=== PATIENT | male | born 1955 | race African-American/Black ===

== ENCOUNTER 2017-11-04 04:50 | Emergency (ER) | payer MEDICARE ==
[~2017-11-04] VITALS: Ht 185.4 cm; Wt 85.7 kg
[2017-11-04] MEDS ORDERED: ACETAMINOPHEN 325 MG TAB PO ONE (05:00)
[2017-11-04 05:20] LABS: BASOPHILS % 0.1 % (0.0-1.0); EOSINOPHILS % 0.3 % (0.0-6.0); HEMATOCRIT 39.6 % (38.2-49.6); HEMOGLOBIN 13.2 g/dL (14.0-18.0); LYMPHOCYTES # (AUTO) 0.9 (1.0-3.2); MEAN CORPUSCULAR HEMOGLOBIN 28.9 pg (28-32); MEAN CORPUSCULAR HGB CONC 33.3 g/dL (31-35); MEAN CORPUSCULAR VOLUME 86.7 fL (81-99); MONOCYTES # (AUTO) 0.8 (0.2-0.8); NEUTROPHILS # (AUTO) 5.1 (2.1-6.9); NEUTROPHILS % 75.5 % (38.7-80.0); PLATELET COUNT 232 x10e3/uL (140-360); RED BLOOD COUNT 4.57 x10e6/uL (4.3-5.7); RED CELL DISTRIBUTION WIDTH 13.4 % (11.7-14.4)
[2017-11-04] MEDS ORDERED: HUMULIN R100 UNIT/2 (05:28)
[2017-11-04] MEDS ORDERED: LASIX40 MG PO (05:28)
[2017-11-04] MEDS ORDERED: COMBIVENT RESPIM4 GM IH (05:28)
[2017-11-04] MEDS ORDERED: GABAPENTIN400 MG PO (05:28)
[2017-11-04] MEDS ORDERED: ISOSORBIDE MONO30 MG PO (05:28)
[2017-11-04] MEDS ORDERED: NOVOLIN N100 UNIT/1 SC ×2 (05:28)
[2017-11-04] MEDS ORDERED: CARVEDILOL12.5 MG PO (05:28)
[2017-11-04] MEDS ORDERED: ULTRAM50 MG PO (05:28)
[2017-11-04] MEDS ORDERED: ATORVASTATIN CA20 MG PO (05:28)
[2017-11-04] MEDS ORDERED: LOSARTAN POTAS100 MG PO (05:28)
[2017-11-04] MEDS ORDERED: ASPIR 8181 MG PO (05:28)
[2017-11-04 05:32] LABS: ALBUMIN 3.2 g/dL (3.5-5.0); ALBUMIN/GLOBULIN RATIO 0.6 (0.8-2.0); ANION GAP 12.6 mmol/L (8-16); CALCIUM 9.4 mg/dL (8.4-10.2); CREATININE, SERUM 1.61 mg/dL (0.72-1.25); POTASSIUM 4.6 mmol/L (3.5-5.1)
[2017-11-04 05:38] LABS: CREATINE KINASE MB 0.4 ng/mL (0.00-5.00); TROPONIN I 0.026 ng/mL (0-0.300)
--- NOTE | 2017-11-04 06:29 | Diagnostic Imaging Report ---
EXAM: CHEST SINGLE (PORTABLE), AP 1 view DATE: 11/04/2017 4:57 AM Time stamp on exam: 0526 hours INDICATION: Cough, fever COMPARISON: None FINDINGS: LINES/TUBES: None LUNGS: No consolidations or edema. PLEURA: No effusions or pneumothorax. HEART AND MEDIASTINUM: Normal size and contour. BONES AND SOFT TISSUES: No acute findings. IMPRESSION: No acute thoracic abnormality. Signed by: Dr. Raquel Hartley M.D. on 11/04/2017 6:25 AM
[2017-11-04] MEDS ORDERED: IBUPROFEN 600 MG TAB PO STA (06:31)
[2017-11-04 06:48] VITALS: BP 161/88
== END 2017-11-04 06:55 | disposition home or self-care (01) ==
LOC: ER 04:50
DX: J20.9 Acute bronchitis, unspecified (principal); J11.1 Influenza due to unidentified influenza virus with other respiratory manifestations
CPT/HCPCS: 36415; 71010; 80053; 82550; 82553; 83605; 84484; 85025; 87400; 93005; 99284

== ENCOUNTER 2018-04-08 18:46 | Emergency (ER) | payer MEDICARE ==
[~2018-04-08] VITALS: Ht 185.4 cm; Wt 95.3 kg
[~2018-04-08 18:46] MED LIST: ASPIR 8181 MG PO; ATORVASTATIN CA20 MG PO; CARVEDILOL12.5 MG PO; COMBIVENT RESPIM4 GM IH; GABAPENTIN400 MG PO; HUMULIN R100 UNIT/2; ISOSORBIDE MONO30 MG PO; LASIX40 MG PO; LOSARTAN POTAS100 MG PO; NOVOLIN N100 UNIT/1 SC; ULTRAM50 MG PO
[2018-04-08] MEDS ORDERED: HYDROMORPHONE 1MG/1ML INJ IV STA ×2 (22:19→23:30)
[2018-04-08] MEDS ORDERED: ONDANSETRON HCL INJ 2 MG/ML VIAL IV STA (22:19)
[2018-04-08 22:37] LABS: BASOPHILS % 0.3 % (0.0-1.0); EOSINOPHILS # (AUTO) 0.3 (0.0-0.4); EOSINOPHILS % 5.2 % (0.0-6.0); HEMATOCRIT 36.3 % (38.2-49.6); LYMPHOCYTES # (AUTO) 2.3 (1.0-3.2); LYMPHOCYTES % 35.9 % (18.0-39.1); MEAN CORPUSCULAR HEMOGLOBIN 28.6 pg (28-32); MEAN CORPUSCULAR HGB CONC 33.1 g/dL (31-35); MEAN CORPUSCULAR VOLUME 86.6 fL (81-99); MONOCYTES # (AUTO) 0.7 (0.2-0.8); MONOCYTES % 10.5 % (4.4-11.3); NEUTROPHILS % 47.9 % (38.7-80.0); PLATELET COUNT 188 x10e3/uL (140-360); RED BLOOD COUNT 4.19 x10e6/uL (4.3-5.7); RED CELL DISTRIBUTION WIDTH 13.8 % (11.7-14.4)
[2018-04-08 22:55] LABS: ALBUMIN/GLOBULIN RATIO 0.8 (0.8-2.0); ANION GAP 12.2 mmol/L (8-16); CALCIUM 9.1 mg/dL (8.4-10.2); CREATININE, SERUM 1.47 mg/dL (0.72-1.25); POTASSIUM 4.2 mmol/L (3.5-5.1)
[2018-04-08 23:01] LABS: CREATINE KINASE MB 1.1 ng/mL (0-5.0)
--- NOTE | 2018-04-09 00:43 | Diagnostic Imaging Report ---
EXAM: CT CHEST WO DATE: 04/08/2018 10:19 PM INDICATION: \S\s/p injury, non penetrating \[id number] \S\2311 \S\Y COMPARISON: None TECHNIQUE: Multidetector CT scanning of the chest was performed. Coronal and sagittal multiplanar reformations were obtained. IV Contrast: 0 ml Isovue 370/300 FINDINGS: LUNGS AND PLEURA: Mild paraseptal emphysema. Minimal scattered linear areas of atelectasis/scarring. There are several nonspecific bilateral pulmonary nodules, for example 4 mm in the right middle lobe, 5 mm in the left lower lobe on image 54 and 6 mm in the right upper lobe on image 27. No consolidations or edema. No effusions or pneumothorax. HEART, MEDIASTINUM, VESSELS: Mild cardiomegaly without pericardial effusion. Coronary artery disease/calcification. Main pulmonary artery is mildly enlarged, 3.6 cm. No mediastinal or periaortic hematoma. UPPER ABDOMEN: Note is made of 1.6 cm left superior and 1.3 cm left renal cystic lesions. Atherosclerotic calcifications. MUSCULOSKELETAL: No acute findings. IMPRESSION: 1. No acute abnormality. 2. Cardiomegaly. 3. Nonspecific bilateral pulmonary nodules (largest 6 mm). Recommend 6-12 month follow-up Signed by: Dr Indy Pack MD on 04/09/2018 12:40 AM
[2018-04-09] MEDS ORDERED: DIAZEPAM 5 MG TAB PO STA (00:49)
[2018-04-09 01:19] VITALS: BP 135/98
== END 2018-04-09 01:30 | disposition home or self-care (01) ==
LOC: ER 18:46
DX: S20.219A Contusion of unspecified front wall of thorax, initial encounter (principal); S80.212A Abrasion, left knee, initial encounter; S80.812A Abrasion, left lower leg, initial encounter; S50.811A Abrasion of right forearm, initial encounter; W20.8XXA Other cause of strike by thrown, projected or falling object, initial encounter; V29.88XA Motorcycle rider (driver) (passenger) injured in other specified transport accidents, initial encounter; Y92.488 Other paved roadways as the place of occurrence of the external cause; I10 Essential (primary) hypertension; E11.65 Type 2 diabetes mellitus with hyperglycemia; I50.9 Heart failure, unspecified; G47.30 Sleep apnea, unspecified; I25.2 Old myocardial infarction
CPT/HCPCS: 36415; 71250; 80053; 82550; 82553; 84484; 85025; 93005; 96374; 99284; J1170 ×2; J2405

== ENCOUNTER 2022-02-21 18:56 | Inpatient (IN) | payer MEDICARE ==
[~2022-02-21] VITALS: Ht 185.4 cm; Wt 95.3 kg
[2022-02-21 20:06] LABS: BASOPHILS % 0.4 % (0.0-1.0); EOSINOPHILS # (AUTO) 0.2 (0.0-0.4); EOSINOPHILS % 3.4 % (0.0-6.0); HEMATOCRIT 28.4 % (38.2-49.6); HEMOGLOBIN 8.8 g/dL (14.0-18.0); LYMPHOCYTES # (AUTO) 0.8 (1.0-3.2); LYMPHOCYTES % 17.7 % (18.0-39.1); MEAN CORPUSCULAR HEMOGLOBIN 30.2 pg (28-32); MEAN CORPUSCULAR VOLUME 97.6 fL (81-99); MONOCYTES # (AUTO) 0.8 (0.2-0.8); MONOCYTES % 16.4 % (4.4-11.3); NEUTROPHILS # (AUTO) 2.9 (2.1-6.9); NEUTROPHILS % 61.9 % (38.7-80.0); PLATELET COUNT 221 x10e3/uL (140-360); RED BLOOD COUNT 2.91 x10e6/uL (4.3-5.7); RED CELL DISTRIBUTION WIDTH 14.8 % (11.7-14.4)
[2022-02-21 20:27] LABS: ALBUMIN 3.1 g/dL (3.5-5.0); ALBUMIN/GLOBULIN RATIO 0.7 (0.8-2.0); ANION GAP 15.3 mmol/L (8-16); CALCIUM 8.3 mg/dL (8.4-10.2); CREATININE, SERUM 6.95 mg/dL (0.72-1.25); POTASSIUM 5.3 mmol/L (3.5-5.1)
[2022-02-21] MEDS ORDERED: ENOXAPARIN SODIUM INJ 100 MG/ML SYR SC STA (20:53)
[2022-02-21] MEDS ORDERED: ONDANSETRON HCL INJ 2MG/ML 2ML 2 MG/ML VIAL IV PRN (21:00)
[2022-02-21] MEDS ORDERED: SODIUM CHLORIDE FLUSH 10 ML SYR INJ PRN (21:00)
[2022-02-21] MEDS ORDERED: Morphine 4mg Syringe 4 MG/ML INJ IV PRN (21:00)
[2022-02-21] MEDS: FUROSEMIDE INJ 10 MG/ML 4 ML VIAL IV SCH (21:27)
[2022-02-21 21:40] VITALS: BP 157/72
[2022-02-22] VITALS (8 sets, daily range): BP systolic 129–145; BP diastolic 53–74
[2022-02-22] MEDS ORDERED: CYMBALTA20 MG PO (01:42)
[2022-02-22] MEDS ORDERED: VITAMIN D250 MCG PO (01:42)
[2022-02-22] MEDS ORDERED: HYDRALAZINE HCL25 MG PO (01:42)
[2022-02-22] MEDS ORDERED: AMLODIPINE BESYL5 MG PO (01:42)
[2022-02-22] MEDS ORDERED: BUMETANIDE1 MG PO (01:42)
[2022-02-22] MEDS ORDERED: METHIMAZOLE5 MG PO (01:42)
[2022-02-22] MEDS ORDERED: OMEPRAZOLE40 MG PO (01:42)
[2022-02-22] MEDS ORDERED: FERROUS SULFAT324 MG PO (01:42)
[2022-02-22] MEDS: TRAMADOL HCL 50 MG TAB PO PRN ×4 (02:15→18:45)
[2022-02-22 03:56] LABS: BASOPHILS % 0.4 % (0.0-1.0); EOSINOPHILS # (AUTO) 0.2 (0.0-0.4); EOSINOPHILS % 3.6 % (0.0-6.0); HEMATOCRIT 25.2 % (38.2-49.6); HEMOGLOBIN 8.1 g/dL (14.0-18.0); LYMPHOCYTES # (AUTO) 0.9 (1.0-3.2); LYMPHOCYTES % 18.1 % (18.0-39.1); MEAN CORPUSCULAR HEMOGLOBIN 30.7 pg (28-32); MEAN CORPUSCULAR HGB CONC 32.1 g/dL (31-35); MEAN CORPUSCULAR VOLUME 95.5 fL (81-99); MONOCYTES # (AUTO) 0.8 (0.2-0.8); MONOCYTES % 17.7 % (4.4-11.3); NEUTROPHILS # (AUTO) 2.9 (2.1-6.9); PLATELET COUNT 212 x10e3/uL (140-360); RED BLOOD COUNT 2.64 x10e6/uL (4.3-5.7); RED CELL DISTRIBUTION WIDTH 14.6 % (11.7-14.4)
[2022-02-22 04:17] LABS: ALBUMIN 2.9 g/dL (3.5-5.0); ALBUMIN/GLOBULIN RATIO 0.7 (0.8-2.0); ANION GAP 12.5 mmol/L (8-16); CALCIUM 7.8 mg/dL (8.4-10.2); CREATININE, SERUM 6.59 mg/dL (0.72-1.25); POTASSIUM 4.5 mmol/L (3.5-5.1)
[2022-02-22 04:33] LABS: CREATINE KINASE MB 1.7 ng/mL (0-5.0)
[2022-02-22] MEDS ORDERED: DEXTROSE 50% SYRINGE 50 ML IV PRN (07:30)
[2022-02-22] MEDS: INSULIN LISPRO 100 UNIT/1 ML 3ML VIAL SQ SCH ×4 (07:30→20:49)
[2022-02-22] MEDS: PANTOPRAZOLE SOD 40 MG TABEC PO SCH (08:33)
[2022-02-22] MEDS: DULOXETINE HCL 20 MG DELAYED RELEASE PO SCH (08:33)
[2022-02-22] MEDS: FUROSEMIDE INJ 10 MG/ML 4 ML VIAL IV SCH ×2 (08:33→20:49)
[2022-02-22] MEDS: ASPIRIN 81 MG CHEW TAB PO SCH (08:33)
[2022-02-22] MEDS: ISOSORBIDE MONONITRATE 30 MG TAB CR PO SCH (08:34)
[2022-02-22] MEDS: METHIMAZOLE 5 MG TAB PO SCH (08:34)
[2022-02-22] MEDS ORDERED: GABAPENTIN 400 MG CAP PO SCH (09:00)
[2022-02-22] MEDS ORDERED: ATORVASTATIN 20 MG TAB PO SCH (09:00)
[2022-02-22] MEDS ORDERED: AMLODIPINE BESYLATE 5 MG TAB PO SCH (09:00)
[2022-02-22] MEDS ORDERED: HYDRALAZINE HCL 25 MG TAB PO SCH (09:00)
[2022-02-22] MEDS ORDERED: FERROUS SULFATE 325 MG TAB PO SCH (09:00)
[2022-02-22 12:39] LABS: % IRON SATURATION 9 % (15-50); IRON 29 ug/dL (65-175); TOTAL IRON BINDING CAPACITY 337 ug/dL (261-478); TRANSFERRIN 241 mg/dL (174-364)
[2022-02-22] MEDS: HYDRALAZINE HCL 25 MG TAB PO SCH ×2 (12:56→20:49)
[2022-02-22 14:46] LABS: CREATINE KINASE MB 1.8 ng/mL (0-5.0)
[2022-02-22] MEDS: IRON SUCROSE 100 MG in SODIUM CHLORIDE 0.9% 100 ML 100 ML IV SCH (18:23)
[2022-02-23] VITALS (8 sets, daily range): BP systolic 121–170; BP diastolic 58–86
[2022-02-23] MEDS: TRAMADOL HCL 50 MG TAB PO PRN ×3 (00:55→14:50)
[2022-02-23 04:56] LABS: BASOPHILS % 0.2 % (0.0-1.0); EOSINOPHILS # (AUTO) 0.2 (0.0-0.4); HEMATOCRIT 26.1 % (38.2-49.6); HEMOGLOBIN 8.4 g/dL (14.0-18.0); LYMPHOCYTES # (AUTO) 0.7 (1.0-3.2); LYMPHOCYTES % 13.1 % (18.0-39.1); MEAN CORPUSCULAR HEMOGLOBIN 30.5 pg (28-32); MEAN CORPUSCULAR HGB CONC 32.2 g/dL (31-35); MEAN CORPUSCULAR VOLUME 94.9 fL (81-99); MONOCYTES # (AUTO) 0.9 (0.2-0.8); MONOCYTES % 17.7 % (4.4-11.3); NEUTROPHILS # (AUTO) 3.3 (2.1-6.9); NEUTROPHILS % 65.6 % (38.7-80.0); PLATELET COUNT 198 x10e3/uL (140-360); RED BLOOD COUNT 2.75 x10e6/uL (4.3-5.7); RED CELL DISTRIBUTION WIDTH 14.5 % (11.7-14.4)
[2022-02-23] MEDS: HYDRALAZINE HCL 25 MG TAB PO SCH ×3 (05:14→21:14)
[2022-02-23 05:21] LABS: ALBUMIN 2.9 g/dL (3.5-5.0); ALBUMIN/GLOBULIN RATIO 0.7 (0.8-2.0); ANION GAP 13.3 mmol/L (8-16); CALCIUM 8.1 mg/dL (8.4-10.2); CHOL/HDL RATIO 2.7 (3.9-4.7); POTASSIUM 4.3 mmol/L (3.5-5.1)
[2022-02-23 05:44] LABS: THYROID STIMULATING HORMONE 2.068 uIU/mL (0.350-4.940)
[2022-02-23 05:50] LABS: % IRON SATURATION 65 % (15-50); IRON 220 ug/dL (65-175); TOTAL IRON BINDING CAPACITY 339 ug/dL (261-478); TRANSFERRIN 242 mg/dL (174-364)
[2022-02-23] MEDS: INSULIN LISPRO 100 UNIT/1 ML 3ML VIAL SQ SCH ×2 (07:30→11:18)
[2022-02-23] MEDS ORDERED: ONDANSETRON HCL 4 MG ORAL DISINTEGRATING TAB PO PRN (08:15)
[2022-02-23] MEDS: PANTOPRAZOLE SOD 40 MG TABEC PO SCH (08:17)
[2022-02-23] MEDS: DULOXETINE HCL 20 MG DELAYED RELEASE PO SCH (08:17)
[2022-02-23] MEDS: FUROSEMIDE INJ 10 MG/ML 4 ML VIAL IV SCH ×2 (08:17→20:51)
[2022-02-23] MEDS: ASPIRIN 81 MG CHEW TAB PO SCH (08:17)
[2022-02-23] MEDS: ISOSORBIDE MONONITRATE 30 MG TAB CR PO SCH (08:18)
[2022-02-23] MEDS: METHIMAZOLE 5 MG TAB PO SCH (08:18)
[2022-02-23] MEDS: ATORVASTATIN 40 MG TAB PO SCH (08:18)
[2022-02-23 12:25] LABS: INR 1.19; PROTHROMBIN TIME 16.2 seconds (11.9-14.5)
[2022-02-23 14:36] LABS: CREATININE,URINE RANDOM 39.13 mg/dL (63-166)
[2022-02-23 14:55] LABS: CLARITY,URINE CLEAR (CLEAR); COLOR,URINE YELLOW (YELLOW); KETONES,URINE NEGATIVE (NEGATIVE); LEUKOCYTE ESTERASE ,URINE NEGATIVE (NEGATIVE); NITRITE,URINE NEGATIVE (NEGATIVE); PROTEIN,URINE DIPSTICK 1+ (NEGATIVE); URINE UROBILINOGEN 1 mg/dL (0.2 - 1)
[2022-02-23 15:02] LABS: WBC,URINE (MAN) 0-5 /HPF (0-5)
[2022-02-23 15:11] LABS: CREATININE,URINE RANDOM 41.48 mg/dL (63-166); TOTAL PROTEIN, URINE 37.2 mg/dL (1-14)
[2022-02-23] MEDS: IRON SUCROSE 100 MG in SODIUM CHLORIDE 0.9% 100 ML 100 ML IV SCH (17:01)
[2022-02-24] VITALS (7 sets, daily range): BP systolic 152–175; BP diastolic 73–89
[2022-02-24] MEDS: ALBUTEROL/IPRATROPIUM 3 ML NEB INH SCH ×3 (01:15→20:05)
[2022-02-24] MEDS: TRAMADOL HCL 50 MG TAB PO PRN ×2 (03:00→12:20)
[2022-02-24 05:07] LABS: BASOPHILS % 0.5 % (0.0-1.0); EOSINOPHILS # (AUTO) 0.1 (0.0-0.4); HEMATOCRIT 26.1 % (38.2-49.6); HEMOGLOBIN 8.5 g/dL (14.0-18.0); LYMPHOCYTES # (AUTO) 0.5 (1.0-3.2); LYMPHOCYTES % 10.9 % (18.0-39.1); MEAN CORPUSCULAR HEMOGLOBIN 30.2 pg (28-32); MEAN CORPUSCULAR HGB CONC 32.6 g/dL (31-35); MEAN CORPUSCULAR VOLUME 92.9 fL (81-99); MONOCYTES # (AUTO) 0.8 (0.2-0.8); MONOCYTES % 18.5 % (4.4-11.3); NEUTROPHILS # (AUTO) 2.9 (2.1-6.9); NEUTROPHILS % 66.6 % (38.7-80.0); PLATELET COUNT 195 x10e3/uL (140-360); RED BLOOD COUNT 2.81 x10e6/uL (4.3-5.7); RED CELL DISTRIBUTION WIDTH 14.4 % (11.7-14.4)
[2022-02-24 05:41] LABS: ALBUMIN 3.2 g/dL (3.5-5.0); ALBUMIN/GLOBULIN RATIO 0.9 (0.8-2.0); CALCIUM 8.3 mg/dL (8.4-10.2); CREATININE, SERUM 5.41 mg/dL (0.72-1.25)
[2022-02-24] MEDS: HYDRALAZINE HCL 25 MG TAB PO SCH ×3 (06:19→21:25)
[2022-02-24] MEDS: PANTOPRAZOLE SOD 40 MG TABEC PO SCH (07:30)
[2022-02-24] MEDS: FUROSEMIDE INJ 10 MG/ML 4 ML VIAL IV SCH ×2 (09:00→21:38)
[2022-02-24] MEDS: ISOSORBIDE MONONITRATE 30 MG TAB CR PO SCH (09:00)
[2022-02-24] MEDS: ASPIRIN 81 MG CHEW TAB PO SCH (09:00)
[2022-02-24] MEDS: METHIMAZOLE 5 MG TAB PO SCH (09:00)
[2022-02-24] MEDS: ATORVASTATIN 40 MG TAB PO SCH (09:00)
[2022-02-24] MEDS: DULOXETINE HCL 20 MG DELAYED RELEASE PO SCH (09:00)
[2022-02-24] MEDS: GABAPENTIN 300 MG CAP PO SCH (09:00)
[2022-02-24] MEDS ORDERED: LIDOCAINE HCL 1% LOCAL INJ 20 ML VIAL ONE (09:49)
[2022-02-24] MEDS ORDERED: SODIUM CHLORIDE 0.9% 250ML 250 ML ONE (09:49)
[2022-02-24] MEDS ORDERED: MIDAZOLAM HCL 2 MG/2 ML VIAL ONE (10:06)
[2022-02-24] MEDS ORDERED: HEPARIN SOD (PORCINE) 1000 UNIT/ML SDV ONE (10:06)
[2022-02-24] MEDS ORDERED: FENTANYL CITRATE/PF 100MCG/2 ML INJ ONE (10:06)
[2022-02-24] MEDS ORDERED: ALBUMIN 25% 12.5GM 0.25 GM/ML BTL IV PRN (13:00)
[2022-02-24] MEDS ORDERED: SODIUM CHLORIDE 0.9% 250ML 500 ML IV PRN (13:00)
[2022-02-24] MEDS ORDERED: SODIUM CHLORIDE 0.9% 1000ML 2,000 ML IV PRN (13:00)
[2022-02-24] MEDS ORDERED: MANNITOL 25% 12.5GM/50 ML VIAL IV PRN (13:00)
[2022-02-24] MEDS ORDERED: HEPARIN SOD (PORCINE) 1000 UNIT/ML SDV IV PRN (13:00)
[2022-02-24] MEDS: BUDESONIDE 0.25 MG/2 ML NEB NEB SCH ×2 (14:00→20:05)
[2022-02-24] MEDS: METHYLPREDNISOLONE SOD SUCC 40 MG/ML VIAL 1ML IV SCH ×2 (14:02→21:38)
[2022-02-24] MEDS ORDERED: ACETAMINOPHEN 325 MG TAB PO PRN (16:15)
[2022-02-24] MEDS ORDERED: TRAMADOL HCL 50 MG TAB PO PRN (16:15)
[2022-02-24] MEDS: CARVEDILOL 3.125 MG TAB PO SCH (17:17)
[2022-02-24] MEDS: IRON SUCROSE 100 MG in SODIUM CHLORIDE 0.9% 100 ML 100 ML IV SCH (18:31)
[2022-02-24] MEDS: INSULIN LISPRO 100 UNIT/1 ML 3ML VIAL SQ SCH (21:00)
[2022-02-24] MEDS ORDERED: DEXTROSE 50% SYRINGE 50 ML IV PRN (23:00)
[2022-02-24] MEDS ORDERED: CLONIDINE HCL 0.1 MG TAB PO PRN (23:30)
[2022-02-24] MEDS: HYDROCODONE/APAP 5MG-325MG TAB PO PRN (23:38)
[2022-02-25] VITALS (7 sets, daily range): BP systolic 147–175; BP diastolic 78–89
[2022-02-25 05:31] LABS: HEMATOCRIT 29.2 % (38.2-49.6); HEMOGLOBIN 9.5 g/dL (14.0-18.0); LYMPHOCYTES # (AUTO) 0.4 (1.0-3.2); LYMPHOCYTES % 12.3 % (18.0-39.1); MEAN CORPUSCULAR HEMOGLOBIN 30.7 pg (28-32); MEAN CORPUSCULAR HGB CONC 32.5 g/dL (31-35); MEAN CORPUSCULAR VOLUME 94.5 fL (81-99); MONOCYTES # (AUTO) 0.1 (0.2-0.8); MONOCYTES % 2.3 % (4.4-11.3); NEUTROPHILS # (AUTO) 2.6 (2.1-6.9); NEUTROPHILS % 84.7 % (38.7-80.0); PLATELET COUNT 163 x10e3/uL (140-360); RED BLOOD COUNT 3.09 x10e6/uL (4.3-5.7); RED CELL DISTRIBUTION WIDTH 14.3 % (11.7-14.4)
[2022-02-25 05:58] LABS: ANION GAP 13.2 mmol/L (8-16); CALCIUM 8.6 mg/dL (8.4-10.2); CREATININE, SERUM 4.04 mg/dL (0.72-1.25); POTASSIUM 4.2 mmol/L (3.5-5.1)
[2022-02-25] MEDS: HYDRALAZINE HCL 25 MG TAB PO SCH ×3 (06:38→21:22)
[2022-02-25] MEDS: ALBUTEROL/IPRATROPIUM 3 ML NEB INH SCH ×2 (07:15→19:45)
[2022-02-25] MEDS: BUDESONIDE 0.25 MG/2 ML NEB NEB SCH ×2 (07:15→19:45)
[2022-02-25] MEDS: INSULIN LISPRO 100 UNIT/1 ML 3ML VIAL SQ SCH ×4 (07:30→20:49)
[2022-02-25] MEDS: METHYLPREDNISOLONE SOD SUCC 40 MG/ML VIAL 1ML IV SCH ×2 (09:00→20:49)
[2022-02-25] MEDS: ISOSORBIDE MONONITRATE 30 MG TAB CR PO SCH (09:00)
[2022-02-25] MEDS: FUROSEMIDE INJ 10 MG/ML 4 ML VIAL IV SCH ×2 (09:00→20:49)
[2022-02-25] MEDS: CARVEDILOL 3.125 MG TAB PO SCH ×2 (09:00→16:53)
[2022-02-25] MEDS: HYDROCODONE/APAP 5MG-325MG TAB PO PRN ×3 (09:38→20:54)
[2022-02-25] MEDS: GUAIFENESIN/CODEINE 5 ML LIQD PO PRN ×3 (10:53→20:36)
[2022-02-25] MEDS: PANTOPRAZOLE SOD 40 MG TABEC PO SCH (14:40)
[2022-02-25] MEDS: ASPIRIN 81 MG CHEW TAB PO SCH (14:42)
[2022-02-25] MEDS: DULOXETINE HCL 20 MG DELAYED RELEASE PO SCH (14:43)
[2022-02-25] MEDS: METHIMAZOLE 5 MG TAB PO SCH (14:44)
[2022-02-25] MEDS: GABAPENTIN 300 MG CAP PO SCH (14:44)
[2022-02-25] MEDS: FLUTICASONE PROPIONATE NASAL SPRAY NS SCH (16:53)
[2022-02-25] MEDS: ATORVASTATIN 40 MG TAB PO SCH (20:49)
[2022-02-26] VITALS (7 sets, daily range): BP systolic 150–171; BP diastolic 76–92
[2022-02-26] MEDS: GUAIFENESIN/CODEINE 5 ML LIQD PO PRN ×3 (03:42→21:25)
[2022-02-26] MEDS: HYDROCODONE/APAP 5MG-325MG TAB PO PRN ×4 (03:42→23:28)
[2022-02-26] MEDS: HYDRALAZINE HCL 25 MG TAB PO SCH ×3 (06:00→21:11)
[2022-02-26] MEDS: BUDESONIDE 0.25 MG/2 ML NEB NEB SCH ×2 (07:00→19:45)
[2022-02-26] MEDS: ALBUTEROL/IPRATROPIUM 3 ML NEB INH SCH ×2 (07:00→19:45)
[2022-02-26] MEDS: INSULIN LISPRO 100 UNIT/1 ML 3ML VIAL SQ SCH ×4 (07:45→21:00)
[2022-02-26] MEDS: METHYLPREDNISOLONE SOD SUCC 40 MG/ML VIAL 1ML IV SCH ×2 (09:08→20:55)
[2022-02-26] MEDS: PANTOPRAZOLE SOD 40 MG TABEC PO SCH (09:08)
[2022-02-26] MEDS: FUROSEMIDE INJ 10 MG/ML 4 ML VIAL IV SCH ×2 (09:08→20:56)
[2022-02-26] MEDS: FLUTICASONE PROPIONATE NASAL SPRAY NS SCH ×2 (09:08→18:40)
[2022-02-26] MEDS: ASPIRIN 81 MG CHEW TAB PO SCH (09:08)
[2022-02-26] MEDS: CARVEDILOL 3.125 MG TAB PO SCH ×2 (09:09→18:41)
[2022-02-26] MEDS: DULOXETINE HCL 20 MG DELAYED RELEASE PO SCH (09:09)
[2022-02-26] MEDS: ISOSORBIDE MONONITRATE 30 MG TAB CR PO SCH (09:10)
[2022-02-26] MEDS: METHIMAZOLE 5 MG TAB PO SCH (09:10)
[2022-02-26] MEDS: GABAPENTIN 300 MG CAP PO SCH (09:10)
[2022-02-26] MEDS: ATORVASTATIN 40 MG TAB PO SCH (20:56)
[2022-02-27] VITALS (7 sets, daily range): BP systolic 160–189; BP diastolic 72–102
[2022-02-27 05:14] LABS: HEMATOCRIT 27.3 % (38.2-49.6); HEMOGLOBIN 8.8 g/dL (14.0-18.0); LYMPHOCYTES # (AUTO) 0.5 (1.0-3.2); LYMPHOCYTES % 8.9 % (18.0-39.1); MEAN CORPUSCULAR HEMOGLOBIN 29.8 pg (28-32); MEAN CORPUSCULAR HGB CONC 32.2 g/dL (31-35); MEAN CORPUSCULAR VOLUME 92.5 fL (81-99); MONOCYTES # (AUTO) 0.3 (0.2-0.8); MONOCYTES % 5.9 % (4.4-11.3); NEUTROPHILS # (AUTO) 4.5 (2.1-6.9); NEUTROPHILS % 84.4 % (38.7-80.0); PLATELET COUNT 175 x10e3/uL (140-360); RED BLOOD COUNT 2.95 x10e6/uL (4.3-5.7)
[2022-02-27] MEDS: HYDRALAZINE HCL 25 MG TAB PO SCH ×2 (05:21→13:02)
[2022-02-27] MEDS: HYDROCODONE/APAP 5MG-325MG TAB PO PRN ×3 (05:22→16:59)
[2022-02-27] MEDS: GUAIFENESIN/CODEINE 5 ML LIQD PO PRN (05:23)
[2022-02-27 05:47] LABS: ANION GAP 14.1 mmol/L (8-16); CALCIUM 8.3 mg/dL (8.4-10.2); CREATININE, SERUM 3.34 mg/dL (0.72-1.25); POTASSIUM 4.1 mmol/L (3.5-5.1)
[2022-02-27] MEDS: ALBUTEROL/IPRATROPIUM 3 ML NEB INH SCH (07:00)
[2022-02-27] MEDS: BUDESONIDE 0.25 MG/2 ML NEB NEB SCH (07:00)
[2022-02-27] MEDS: INSULIN LISPRO 100 UNIT/1 ML 3ML VIAL SQ SCH ×3 (07:30→16:30)
[2022-02-27] MEDS: FLUTICASONE PROPIONATE NASAL SPRAY NS SCH ×2 (08:52→17:26)
[2022-02-27] MEDS: PANTOPRAZOLE SOD 40 MG TABEC PO SCH (08:52)
[2022-02-27] MEDS: ASPIRIN 81 MG CHEW TAB PO SCH (08:52)
[2022-02-27] MEDS: METHYLPREDNISOLONE SOD SUCC 40 MG/ML VIAL 1ML IV SCH (08:52)
[2022-02-27] MEDS: METHIMAZOLE 5 MG TAB PO SCH (08:53)
[2022-02-27] MEDS: DULOXETINE HCL 20 MG DELAYED RELEASE PO SCH (08:53)
[2022-02-27] MEDS: GABAPENTIN 300 MG CAP PO SCH (08:53)
[2022-02-27] MEDS: CARVEDILOL 3.125 MG TAB PO SCH ×2 (09:00→17:26)
[2022-02-27] MEDS: FUROSEMIDE INJ 10 MG/ML 4 ML VIAL IV SCH (11:22)
[2022-02-27] MEDS ORDERED: Atorvastatin PO (15:39)
[2022-02-27] MEDS ORDERED: GABAPENTIN300 MG PO (15:39)
[2022-02-27] MEDS ORDERED: COREG3.125 MG PO (15:39)
[2022-02-27] MEDS ORDERED: HYDRALAZINE HCL25 MG PO (15:39)
[2022-02-27] MEDS: ISOSORBIDE MONONITRATE 30 MG TAB CR PO SCH (17:26)
== END 2022-02-27 18:24 | disposition home or self-care (01) | DRG 291 ==
LOC: ER 19:00 → ERHOLD 20:57 → MED/SURG 21:31
PROVIDERS: ADMIT Internal Medicine; ATTEND Internal Medicine
PROC: 5A1D70Z Performance of Urinary Filtration, Intermittent, Less than 6 Hours Per Day (ICD-10-PCS; 2022-02-22)
PROC: 0JH63XZ Insertion of Tunneled Vascular Access Device into Chest Subcutaneous Tissue and Fascia, Percutaneous Approach (ICD-10-PCS; principal; 2022-02-24)
PROC: 02HV33Z Insertion of Infusion Device into Superior Vena Cava, Percutaneous Approach (ICD-10-PCS; 2022-02-24)
DX: I13.2 Hypertensive heart and chronic kidney disease with heart failure and with stage 5 chronic kidney disease, or end stage renal disease (principal); I50.23 Acute on chronic systolic (congestive) heart failure; N18.6 End stage renal disease; R18.8 Other ascites; Z99.2 Dependence on renal dialysis; D50.9 Iron deficiency anemia, unspecified; D63.8 Anemia in other chronic diseases classified elsewhere; E78.00 Pure hypercholesterolemia, unspecified; G47.30 Sleep apnea, unspecified; J43.9 Emphysema, unspecified; R91.1 Solitary pulmonary nodule; E78.5 Hyperlipidemia, unspecified; E88.09 Other disorders of plasma-protein metabolism, not elsewhere classified; R77.1 Abnormality of globulin; R59.9 Enlarged lymph nodes, unspecified; Z88.5 Allergy status to narcotic agent; F32.A Depression, unspecified; G47.33 Obstructive sleep apnea (adult) (pediatric); E11.51 Type 2 diabetes mellitus with diabetic peripheral angiopathy without gangrene; I25.2 Old myocardial infarction; E66.9 Obesity, unspecified; Z68.27 Body mass index [BMI] 27.0-27.9, adult; Z20.822 Contact with and (suspected) exposure to COVID-19; E11.319 Type 2 diabetes mellitus with unspecified diabetic retinopathy without macular edema; Z89.422 Acquired absence of other left toe(s); E05.90 Thyrotoxicosis, unspecified without thyrotoxic crisis or storm; Z87.891 Personal history of nicotine dependence; E11.40 Type 2 diabetes mellitus with diabetic neuropathy, unspecified
CPT/HCPCS: 36415; 36558; 70220; 71045; 71250; 74176; 74470; 76770; 76937; 77001; 78580; 80048; 80053; 80061; 81001; 82550; 82553; 82570; 82575; 82784; 82948; 83036; 83540; 83880; 84156; 84443; 84466; 84484; 85025; 85379; 85610; 86705; 86706; 87340; 90962; 93005; 93306; 94660; 94799; 96372; 99152; 99153; 99284; A9540; C1769; C1892; J1644; J1650; J1756; J1940; J2001; J2150; J2250; J2920; J3010; J7030; J7050; U0002